=== PATIENT | male | born 1950 | race Caucasian/White ===

== ENCOUNTER 2018-09-29 10:08 | Outpatient (CLI) | payer MEDICARE ==
--- NOTE | 2018-09-29 12:47 | Diagnostic Imaging Report ---
Indication: Right shoulder pain Findings: 3 views of the right shoulder were obtained. No acute fractures, malalignment, erosions or periostitis are identified. Bones are osteopenic. Narrowing of the glenohumeral joint demonstrated. Soft tissues are unremarkable. Impression: Negative for acute injury. Osteoarthrosis
--- NOTE | 2018-09-29 12:48 | Diagnostic Imaging Report ---
Indication: Right hand pain Findings: 3 views of the right hand were obtained. There is an acute impacted fracture of the distal radius. Bones are osteopenic. Soft tissue swelling noted. No malalignment seen. IMPRESSION: Acute distal radius fracture
== END 2018-09-29 12:08 | disposition home or self-care (01) ==
LOC: RAD 10:08
DX: S52.501A Unspecified fracture of the lower end of right radius, initial encounter for closed fracture (principal); M25.511 Pain in right shoulder

== ENCOUNTER → 2020-03-15 | Outpatient (CLI) | payer MEDICARE ==
[~2020-03-15] MED LIST: CELEXA20 MG ORAL; CEPHALEXIN250 M2 ORAL; CRESTOR10 M2 ORAL; DESCOVY PO; LATANOPROST 0.7.5 ML OP; QUETIAPINE FUMA50 MG ORAL; SEROQUEL100 MG ORAL; VIRAMUNE200 MG PO
--- NOTE | 2020-03-16 15:29 | Diagnostic Imaging Report ---
Indication: Cough Technique: 2 views of the chest Comparison: 08/04/2019 Findings: The lung apices are cut off of the exam. Small focal patchy infiltrate is seen in the left lung base adjacent to the cardiac apex. No other infiltrates. No effusions. The heart size is normal. There is no significant interim change Impression: No acute process
== END | disposition home or self-care (01) ==
LOC: RAD 11:30
DX: Z01.818 Encounter for other preprocedural examination (principal); R05 Cough
CPT/HCPCS: 71046

== ENCOUNTER 2020-03-22 06:01 | Inpatient (IN) | payer MEDICAID, MEDICARE ==
[~2020-03-22] VITALS: Ht 185.4 cm; Wt 78.0 kg
[2020-03-22] VITALS (13 sets, daily range): BP systolic 98–169; BP diastolic 60–104
[~2020-03-22 06:01] MED LIST changes: -CELEXA20 MG ORAL; -CEPHALEXIN250 M2 ORAL; -CRESTOR10 M2 ORAL; -DESCOVY PO; -LATANOPROST 0.7.5 ML OP; -QUETIAPINE FUMA50 MG ORAL; -SEROQUEL100 MG ORAL; -VIRAMUNE200 MG PO; +ceFAZolin 1gm IVPB IVPB ONE; +celeBREX 200mg Cap **SURGERY PATIENTS ONLY ORAL ONE; +oxyCONTIN 10mg tab ORAL ONE
[2020-03-22] MEDS ORDERED: Lidocaine 1% MPF 10mg/ml 5ml ONE (06:54)
[2020-03-22] MEDS ORDERED: Ropivacaine 5mg/ml Vial 20ml INJ ONE (06:56)
[2020-03-22] MEDS ORDERED: HYDROmorphone 1mg/ml Carpuject SUBQ PRN (07:00)
[2020-03-22] MEDS ORDERED: Milk of Magnesia 30ml Ud ORAL PRN (07:00)
--- NOTE | 2020-03-22 07:00 | Pre-Procedure Note/Attestation ---
Pre-Procedure Note/Attestation Complete Prior to Procedure Planned Procedure: left Procedure Narrative: left total knee arthroplasty Indications for Procedure Pre-Operative Diagnosis: left knee arthritis Attestation I attest that I discussed the nature of the procedure; its benefits; risks and complications; and alternatives (and the risks and benefits of such alternatives ), prior to the procedure, with the patient (or the patient's legal human resources representative). I attest that, if there was a reasonable possibility of needing a blood transfusion, the patient (or the patient's legal human resources representative) was given the [facility] standardized written summary, pursuant to the Adelfo Gisselle Blood Safety Act ([place] Health and Safety Code # 1645, as amended). I attest that I re-evaluated the patient just prior to the surgery and that there has been no change in the patient's H&P, except as documented below: NONE Lemuel Jasmine MD Mar 22, 2020 07:00
[2020-03-22] MEDS ORDERED: Midazolam 2mg/2ml Inj ONE (07:01)
[2020-03-22] MEDS ORDERED: fentaNYL 100 mcg/2 mL IV ONE (07:01)
[2020-03-22] MEDS ORDERED: CELEXA20 MG ORAL (07:18)
[2020-03-22] MEDS ORDERED: CEPHALEXIN250 M2 ORAL (07:18)
[2020-03-22] MEDS ORDERED: QUETIAPINE FUMA50 MG ORAL (07:18)
[2020-03-22] MEDS ORDERED: VIRAMUNE200 MG PO (07:18)
[2020-03-22] MEDS ORDERED: DESCOVY PO (07:18)
[2020-03-22] MEDS ORDERED: LATANOPROST 0.7.5 ML OP (07:18)
[2020-03-22] MEDS ORDERED: LR 1000ml ONE (08:00)
[2020-03-22] MEDS ORDERED: NS Irrig 1000ml ONE (08:00)
[2020-03-22] MEDS ORDERED: Sterile Water Irrig 1000ml IRRIG ONE (08:00)
[2020-03-22] MEDS ORDERED: Tranexamic Acid 1,000 MG in NS 55 ML IV ONE (08:15)
[2020-03-22] MEDS ORDERED: NeoSporin Gu Irrig 1ml Amp IRRIG ONE ×2 (08:17→10:58)
[2020-03-22] MEDS ORDERED: Bacitracin 50000 Units Vial ONE ×2 (08:17→10:58)
--- NOTE | 2020-03-22 09:13 | Anethesia Preoperative Eval ---
Anesthesia Pre-op PMH/ROS General Date of Evaluation: Mar 22, 2020 Time of Evaluation: 07:50 Anesthesiologist: Max ASA Score: ASA 3 Mallampati Score Class I : Soft palate, uvula, fauces, pillars visible Class II: Soft palate, uvula, fauces visible Class III: Soft palate, base of uvula visible Class IV: Only hard plate visible Mallampati Classification: Class II Surgeon: Mitali Diagnosis: L knee DJD Surgical Procedure: L ee arthroplasty Anesthesia History: none Family History: no anesthesia problems Allergies: Coded Allergies: No Known Allergies (Verified , 03/22/20) Medications: see eMAR Patient NPO?: Yes Past Medical History Cardiovascular: Reports: HTN; Denies: CAD, HI, valve dz, arrhythmia, other Pulmonary: Denies: asthma, COPD, BEAN, other Gastrointestinal/Genitourinary: Reports: GERD, CRI - Elevated Cr.; Denies: ESRD, other Neurologic/Psychiatric: Reports: depression/anxiety; Denies: dementia, CVA, TIA, other Endocrine: Denies: DM, hypothyroidism, steroids, other HEENT: Reports: cataract (L) - Bilateral s/p Sx, glaucoma, other - retial detouchment; Denies: cataract (R), AGDAAGUX (L), AGDAAGUX (R) Hematology/Immune: Reports: other - HIV + sable on ativirals; Denies: anemia, DVT, bleeding disorder Musculoskeletal/Integumentary: Reports: OA; Denies: RA, DJD, DDD, edema, other PMH Narrative: as above PSxH Narrative: Posterior cervical spine fusion, bilateral cataracts, retinal Sx, hemicolectomy for CA Anesthesia Pre-op Phys. Exam Physician Exam Last Vital Signs Date Time Temp Pulse Resp B/P (MAP) Pulse Ox O2 Delivery O2 Flow Rate FiO2 03/22/20 07:05 97.7 61 18 139/97 (111) 96 03/22/20 06:43 Room Air Constitutional: NAD Neurologic: CN 2-12 intact Cardiovascular: RRR, no M/R/G Respiratory: CTA Gastrointestinal: S/NT/ND Airway Exam Mallampati Score: Class II MO: limited Neck: stiff ROM: limited Teeth: missing Dentures: no upper, no lower Anesthesia Pre-op A/P Labs see chart Studies Pre-op Studies: EKG - NSR Risk Assessment & Plan Assessment: ASA 3 Plan: SAB vs GA with femoral nerve block for postop pain control Status Change Before Surgery: No Pre-Antibiotics Drug: Ancef 2gr Given Within 1 Hr of Incision: Yes Time Given: 09:10 Samm Wyman MD Mar 22, 2020 09:13
[2020-03-22] MEDS ORDERED: Acetaminophen (Non formulary) 100 ML IV ONE (09:15)
[2020-03-22] MEDS ORDERED: LR 1000ml 1,000 ML IVLG SCH (09:20)
[2020-03-22] MEDS ORDERED: Ketorolac 30mg Inj IV PRN (09:30)
[2020-03-22] MEDS ORDERED: fentaNYL 100 mcg/2 mL IV PRN (09:30)
[2020-03-22] MEDS ORDERED: Morphine Sulfate 10mg/ml Inj ONE (09:31)
[2020-03-22] MEDS ORDERED: Sodium Chloride 10ml vial INJ ONE (09:32)
--- NOTE | 2020-03-22 11:29 | Brief Operative Note ---
Immediate Post Operative Note Operative Note Chief Complaint: left knee pain Pre-op Diagnosis: left knee arthritis Procedure: left TKA Post-op Diagnosis: same as pre-op Findings: consistent w/pre-op dx studies Surgeon: md cindy Infertility Nurse: jose bailey Anesthesiologist: md kennedy Anesthesia: general Specimen: yes Complications: none Condition: stable Fluids: ns Estimated Blood Loss: minimal Drains: none Implant(s) used?: Yes - Lemuel Larson MD Mar 22, 2020 11:29
--- NOTE | 2020-03-22 11:46 | Immediate Post-Op Evaluation ---
Immediate Post-Op Evalulation Immediate Post-Op Evalulation Procedure: L total knee arthroplasty Date of Evaluation: Mar 22, 2020 Time of Evaluation: 11:45 IV Fluids: 1800 Blood Products: none Estimated Blood Loss: 250 Urinary Output: 100 Blood Pressure Systolic: 108 Blood Pressure Diastolic: 81 Pulse Rate: 64 Respiratory Rate: 18 O2 Sat by Pulse Oximetry: 99 Temperature (Fahrenheit): 97.5 Pain Score (1-10): 1 Nausea: No Vomiting: No Complications none Patient Status: awake, patent, none Hydration Status: adequate Samm Wyman MD Mar 22, 2020 11:46
--- NOTE | 2020-03-22 11:57 | Orthopedic Progress Note ---
Orthopedic - Progress Note Subjective Additional Comments patient was seen in recovery, awake, alert oriented. Knee clean and dry. dressing intact. Good capillary refill distally. Left foot warm. No evidence of neural or vascular injury. Patient has some decrease sensation and decrease strength in BLE due to spinal. Will monitor progress. No complications noted. Objective Last 24 Hour Vital Signs Date Time Temp Pulse Resp B/P (MAP) Pulse Ox O2 Delivery O2 Flow Rate FiO2 03/22/20 11:46 64 18 99 03/22/20 07:05 97.7 61 18 139/97 (111) 96 03/22/20 06:43 Room Air Intake and Output 03/21/20 03/22/20 19:00 07:00 # Voids 1 Assessment Procedure Performed left TKA Lemuel Jasmine MD Mar 22, 2020 11:57
--- NOTE | 2020-03-22 14:01 | Diagnostic Imaging Report ---
Indication: Postoperative total knee arthroplasty for pain Technique: 2 views of the left knee Comparison: none Findings: There is a total knee arthroplasty prosthesis that appears well-positioned. There is retained air from the surgical exposure within the soft tissues. Impression: Postoperative left knee. No unusual features
[2020-03-22] MEDS ORDERED: SEROQUEL100 MG ORAL (15:13)
[2020-03-22] MEDS ORDERED: CRESTOR10 M2 ORAL (15:16)
[2020-03-22] MEDS: ceFAZolin sod 1 GM in D5W 55 ML IV SCH (16:45)
[2020-03-22] MEDS: D5 1/2NS w/KCl 20mEq 1,000 ML IV SCH (16:45)
--- NOTE | 2020-03-22 17:15 | Operative Note - Dictated ---
DATE OF OPERATION: 03/22/2020 PREOPERATIVE DIAGNOSIS: Left knee end-stage arthritis. POSTOPERATIVE DIAGNOSIS: Left knee end-stage arthritis. PROCEDURE: Left total knee arthroplasty using Nicole Triathlon System, size 7 femur, size 7 tibia, 36 mm all poly patella, and 9 mm tibial insert, all cemented. SURGEON: Lemuel Jasmine M.D. SUPERVISOR PAINTING: Linda Little PA-C. ANESTHESIOLOGIST: Samm Wyman M.D. ANESTHESIA: LMA anesthesia combined with adductor block. EBL: 150 mL COMPLICATIONS: None. BRIEF HISTORY: Patient is a pleasant 69-year-old gentleman who has had severe arthritis with a valgus deformity of the left knee. After full discussion of risks and benefits of the surgery and complications associated with it and after he failed nonoperative treatment, he opted for surgical treatment of the left knee in the form of total knee arthroplasty. Risks of infection, bleeding, neurovascular complication, possibility of continued pain, possibility of DVT, PEs, loosening, infection requiring revision and resection arthroplasty, as well as need for revision arthroplasty down the line may occur and all these risks were discussed with him. OPERATIVE PROCEDURE: The patient was brought to the operating table and placed supine. All pressure points were well padded. Adductor block was induced and general LMA anesthesia was induced. The left knee was prepped and draped in usual sterile fashion. The left leg was exsanguinated and tourniquet was inflated to 275 mmHg. Prior to tourniquet, Ancef and tranexamic acid were given. The standard anterior approach to the left knee was undertaken. Incision was taken through subcutaneous tissue and medial parapatellar arthrotomy was performed. There was extensive synovitis and inflammation in the knee and there was 300 mL of synovial fluid that was aspirated from the knee. The patella was then everted. Fat pad was resected. Medial release of deep fibers of the MCL was done. The knee was then bent and ACL, PCL menisci were removed. At this point in time, care was given to the distal femur cut. A 5-degree valgus distal femur cut was performed without any complication. At this point, care was given to the measurements and measurements of the femur were made and size 7 femur appeared to be the right size. Care was given to make sure that 3 degrees of external rotation was created, especially in view of the lateral wear. Therefore, a transepicondylar axis as well as the center of the trochlear groove was used as reference to create 3 degrees of external rotation. Once this was completed, the anterior, posterior, and chamfer cuts were performed without any complications. Trial femur was applied and slightly lateralized and PEG holes were drilled. At this point, care was given to the tibia. Using an extramedullary guide, the anatomical axis of the tibia was recreated using anterior tibial crest. The slope was recreated at this point, 2 mm was taken off the most involved side. This provided excellent cut of the tibia. Once this was completed, the flexion-extension gap was checked. The flexion-extension gap was excellent. It should be noted that appropriate retractors were placed medial and lateral and posteriorly to protect the vital structures during the tibial cut. Once this was completed, the size 7 tibia appeared to be of the right size. This was drilled and punched. At this point, care was given to the patella. The patella measured 25 mm. A freehand cut was performed and 14 mm patella was remaining. Size 36 patella appeared to be the right size and PEG holes were drilled. The trial patella was then applied as well as trial femur and trial tibia and 9 mm poly was inserted. Range of motion was checked. There was excellent range of motion from 0 to 100 degrees of range of motion. There was excellent stability at 0, 30 degrees, 45 degrees, and 90 degrees of flexion. The patellofemoral tracking was excellent. At this point, all trial components were removed and the knee was thoroughly irrigated using copious amount of fluid. Cement was mixed and the tibial component, femoral component, and patellar components were all cemented without any complication. Once this was completed, the size 9 mm poly was trialed and appeared to be excellent with range of motion and stability as described. Therefore, 9 mm actual poly was locked in without any complication. Patellofemoral tracking and range of motion stability were checked with the final components and appeared to be perfect. Wounds were thoroughly irrigated using copious amount of fluid. The tourniquet was deflated. There was some bleeding that was stopped. There was some bleeding from the lateral side and with the knee flexed, the bleeding could not be seen. However, with the knee extended, there was a slight amount of filling of the lateral gutter. Compression was applied and the bleeding appeared to have gone to minimal, although there was some bleeding present. However, due to the fact that on multiple attempts in trying to identify the source of bleeding, it could not be done on the lateral side or posteriorly, and the minimal size of bleeding, and after adequate compression of the bleeder, the joint was closed. The capsule was closed using #1 Vicryl suture. Subcutaneous tissue was closed using 2-0 Vicryl suture. Skin was closed with 3-0 Monocryl suture. Sterile dressing was applied and Dermabond was applied. Neurovascular checks will be done routinely within the next hour and a half to assure adequate perfusion of the left leg. It should be noted that there was absolutely no bleeding from the posterior popliteal artery area and the bleeding appeared to be from the medial gutter. All lap counts and instrument counts were correct. Lemuel Jasmine M.D. DR: RYLAN JOB#: [id number] CC:
[2020-03-22] MEDS: Docusate 100mg cap ORAL SCH (17:21)
[2020-03-22] MEDS: Latanoprost 0.005% Opth 2.5ml Soln BOTH EYES SCH (21:36)
[2020-03-22] MEDS: Atorvastatin 20mg tab ORAL SCH ×2 (21:36→21:58)
[2020-03-22 22:47] LABS: APPEARANCE,URINE CLEAR; BILIRUBIN, URINE NEGATIVE (NEGATIVE); COLOR,URINE PALE YELLOW; GLUCOSE, URINE (UA) 3+ (NEGATIVE); KETONES,URINE 1+ (NEGATIVE); LEUKOCYTE ESTERASE ,URINE 1+ (NEGATIVE); NITRITE,URINE NEGATIVE (NEGATIVE); PH,URINE 5 (4.5-8.0); PROTEIN,URINE 2+ (NEGATIVE); UROBILINOGEN,URINE NORMAL MG/DL (0.0-1.0)
[2020-03-23] VITALS: BP 165/88
[2020-03-23] MEDS: ceFAZolin sod 1 GM in D5W 55 ML IV SCH (00:30)
[2020-03-23 04:00] VITALS: BP 160/90
[2020-03-23] MEDS: D5 1/2NS w/KCl 20mEq 1,000 ML IV SCH ×2 (04:20→17:40)
[2020-03-23] MEDS: HYDROcodone/Acetamin 7.5/325 tab ORAL PRN (05:07)
[2020-03-23 06:22] LABS: BASOPHILS % (AUTO) 0.6 % (0.0-2.0); EOSINOPHILS % (AUTO) 0.2 % (0.0-3.0); HEMATOCRIT 39.2 % (42.0-52.0); HEMOGLOBIN 13.5 G/DL (14.2-18.0); LYMPHOCYTES % (AUTO) 14.5 % (20.0-45.0); MEAN CORPUSCULAR VOLUME 100 FL (80-99); MONOCYTES % (AUTO) 8.9 % (1.0-10.0); NEUTROPHILS % (AUTO) 75.8 % (45.0-75.0); PLATELET COUNT 190 K/UL (150-450); RED BLOOD COUNT 3.93 M/UL (4.70-6.10); RED CELL DISTRIBUTION WIDTH 11.2 % (11.6-14.8); WHITE BLOOD COUNT 9.4 K/UL (4.8-10.8)
[2020-03-23 06:38] LABS: ALANINE AMINOTRANSFERASE 23 U/L (12-78); ALBUMIN 3.2 G/DL (3.4-5.0); ALBUMIN/GLOBULIN RATIO 1.1 (1.0-2.7); ALKALINE PHOSPHATASE 81 U/L (46-116); ANION GAP 9 mmol/L (5-15); ASPARTATE AMINO TRANSFERASE 21 U/L (15-37); BILIRUBIN,TOTAL 0.5 MG/DL (0.2-1.0); BLOOD UREA NITROGEN 16 mg/dL (7-18); CALCIUM 7.7 MG/DL (8.5-10.1); CARBON DIOXIDE 26 MMOL/L (21-32); CHLORIDE 105 MMOL/L (98-107); CREATININE 1.4 MG/DL (0.55-1.30); POTASSIUM 4.2 MMOL/L (3.5-5.1); SODIUM 140 MMOL/L (136-145)
[2020-03-23 08:00] VITALS: BP 142/83
--- NOTE | 2020-03-23 08:12 | 48 Hour Post Anesthesia Eval ---
Post Anesthesia Evaluation Procedure: L total knee arthroplasty Date of Evaluation: Mar 23, 2020 Time of Evaluation: 08:11 Blood Pressure Systolic: 160 0: 70 Pulse Rate: 76 Respiratory Rate: 16 Temperature (Fahrenheit): 97.5 O2 Sat by Pulse Oximetry: 96 Airway: patent Nausea: No Vomiting: No Pain Intensity: 3 Hydration Status: adequate Cardiopulmonary Status: Stable Mental Status/LOC: patient returned to baseline Follow-up Care/Observations: 0 Post-Anesthesia Complications: 0 Follow-up care needed: N/A Ag Petit MD Mar 23, 2020 08:12
--- NOTE | 2020-03-23 08:19 | Orthopedic Progress Note ---
Orthopedic - Progress Note Subjective Symptoms: improved Objective Laboratory Tests Test 03/22/20 22:20 03/23/20 05:15 Urine Color Pale yellow Urine Appearance Clear Urine pH 5 (4.5-8.0) Urine Specific [place] 1.020 (1.005-1.035) Urine Protein 2+ (NEGATIVE) H Urine Glucose (UA) 3+ (NEGATIVE) H Urine Ketones 1+ (NEGATIVE) H Urine Blood 2+ (NEGATIVE) H Urine Nitrite Negative (NEGATIVE) Urine Bilirubin Negative (NEGATIVE) Urine Urobilinogen Normal MG/DL (0.0-1.0) Urine Leukocyte Esterase 1+ (NEGATIVE) H Urine RBC 5-10 /HPF (0 - 0) H Urine WBC 5-10 /HPF (0 - 0) H Urine Squamous Epithelial Cells None /LPF (NONE/OCC) Urine Bacteria Occasional /HPF (NONE) White Blood Count 9.4 K/UL (4.8-10.8) Red Blood Count 3.93 M/UL (4.70-6.10) L Hemoglobin 13.5 G/DL (14.2-18.0) L Hematocrit 39.2 % (42.0-52.0) L Mean Corpuscular Volume 100 FL (80-99) H Mean Corpuscular Hemoglobin 34.4 PG (27.0-31.0) H Mean Corpuscular Hemoglobin Concent 34.5 G/DL (32.0-36.0) Red Cell Distribution Width 11.2 % (11.6-14.8) L Platelet Count 190 K/UL (150-450) Mean Platelet Volume 5.4 FL (6.5-10.1) L Neutrophils (%) (Auto) 75.8 % (45.0-75.0) H Lymphocytes (%) (Auto) 14.5 % (20.0-45.0) L Monocytes (%) (Auto) 8.9 % (1.0-10.0) Eosinophils (%) (Auto) 0.2 % (0.0-3.0) Basophils (%) (Auto) 0.6 % (0.0-2.0) Sodium Level 140 MMOL/L (136-145) Potassium Level 4.2 MMOL/L (3.5-5.1) Chloride Level 105 MMOL/L (98-107) Carbon Dioxide Level 26 MMOL/L (21-32) Anion Gap 9 mmol/L (5-15) Blood Urea Nitrogen 16 mg/dL (7-18) Creatinine 1.4 MG/DL (0.55-1.30) H Estimat Glomerular Filtration Rate 50.2 mL/min (>60) Glucose Level 147 MG/DL (74-106) H Calcium Level 7.7 MG/DL (8.5-10.1) L Total Bilirubin 0.5 MG/DL (0.2-1.0) Aspartate Amino Transf (AST/SGOT) 21 U/L (15-37) Alanine Aminotransferase (ALT/SGPT) 23 U/L (12-78) Alkaline Phosphatase 81 U/L (46-116) Total Protein 6.0 G/DL (6.4-8.2) L Albumin 3.2 G/DL (3.4-5.0) L Globulin 2.8 g/dL Albumin/Globulin Ratio 1.1 (1.0-2.7) Last 24 Hour Vital Signs Date Time Temp Pulse Resp B/P (MAP) Pulse Ox O2 Delivery O2 Flow Rate FiO2 03/23/20 08:12 76 16 96 03/23/20 04:00 97.5 76 16 160/90 (113) 96 03/23/20 00:00 98.5 82 17 165/88 (113) 96 03/22/20 22:01 177/100 03/22/20 21:00 Room Air 03/22/20 20:00 97.9 60 16 169/104 (125) 95 03/22/20 17:17 98.4 03/22/20 15:00 98.4 62 18 105/66 (79) 95 03/22/20 14:00 98.5 63 18 106/60 (75) 96 03/22/20 13:15 98.2 60 18 105/68 (80) 96 03/22/20 13:02 97.7 63 18 103/72 97 Nasal Cannula 3 03/22/20 12:45 61 15 101/73 99 Nasal Cannula 3 03/22/20 12:30 60 15 102/73 98 Nasal Cannula 3 03/22/20 12:15 61 18 98/72 96 Nasal Cannula 3 03/22/20 12:00 59 19 101/72 98 Nasal Cannula 3 03/22/20 11:50 58 17 100/74 99 Simple Mask 6 03/22/20 11:46 64 18 99 03/22/20 11:40 60 15 118/87 97 Simple Mask 6 03/22/20 11:32 97.2 63 18 118/87 99 Simple Mask 6 Intake and Output 03/22/20 03/23/20 19:00 07:00 Intake Total 200 ml Output Total 100 ml Balance 100 ml Intake IV Total 200 ml Output Urine Total 100 ml Laboratory Tests Test 03/22/20 22:20 03/23/20 05:15 Urine Color Pale yellow Urine Appearance Clear Urine pH 5 (4.5-8.0) Urine Specific [place] 1.020 (1.005-1.035) Urine Protein 2+ (NEGATIVE) H Urine Glucose (UA) 3+ (NEGATIVE) H Urine Ketones 1+ (NEGATIVE) H Urine Blood 2+ (NEGATIVE) H Urine Nitrite Negative (NEGATIVE) Urine Bilirubin Negative (NEGATIVE) Urine Urobilinogen Normal MG/DL (0.0-1.0) Urine Leukocyte Esterase 1+ (NEGATIVE) H Urine RBC 5-10 /HPF (0 - 0) H Urine WBC 5-10 /HPF (0 - 0) H Urine Squamous Epithelial Cells None /LPF (NONE/OCC) Urine Bacteria Occasional /HPF (NONE) White Blood Count 9.4 K/UL (4.8-10.8) Red Blood Count 3.93 M/UL (4.70-6.10) L Hemoglobin 13.5 G/DL (14.2-18.0) L Hematocrit 39.2 % (42.0-52.0) L Mean Corpuscular Volume 100 FL (80-99) H Mean Corpuscular Hemoglobin 34.4 PG (27.0-31.0) H Mean Corpuscular Hemoglobin Concent 34.5 G/DL (32.0-36.0) Red Cell Distribution Width 11.2 % (11.6-14.8) L Platelet Count 190 K/UL (150-450) Mean Platelet Volume 5.4 FL (6.5-10.1) L Neutrophils (%) (Auto) 75.8 % (45.0-75.0) H Lymphocytes (%) (Auto) 14.5 % (20.0-45.0) L Monocytes (%) (Auto) 8.9 % (1.0-10.0) Eosinophils (%) (Auto) 0.2 % (0.0-3.0) Basophils (%) (Auto) 0.6 % (0.0-2.0) Sodium Level 140 MMOL/L (136-145) Potassium Level 4.2 MMOL/L (3.5-5.1) Chloride Level 105 MMOL/L (98-107) Carbon Dioxide Level 26 MMOL/L (21-32) Anion Gap 9 mmol/L (5-15) Blood Urea Nitrogen 16 mg/dL (7-18) Creatinine 1.4 MG/DL (0.55-1.30) H Estimat Glomerular Filtration Rate 50.2 mL/min (>60) Glucose Level 147 MG/DL (74-106) H Calcium Level 7.7 MG/DL (8.5-10.1) L Total Bilirubin 0.5 MG/DL (0.2-1.0) Aspartate Amino Transf (AST/SGOT) 21 U/L (15-37) Alanine Aminotransferase (ALT/SGPT) 23 U/L (12-78) Alkaline Phosphatase 81 U/L (46-116) Total Protein 6.0 G/DL (6.4-8.2) L Albumin 3.2 G/DL (3.4-5.0) L Globulin 2.8 g/dL Albumin/Globulin Ratio 1.1 (1.0-2.7) Wound: clean, dry, intact Drains: none Neuro Status: normal Vascular Status: normal Additional Comments xray reviewed and excellent Assessment Post-op Diagnosis POD 1 Procedure Performed Left TKA Plan Plan: PT, discharge plan - Likely to rehab tomorrow Linda Little Mar 23, 2020 08:19
[2020-03-23] MEDS ORDERED: Nevirapine 200mg Tab ORAL SCH (09:00)
[2020-03-23] MEDS ORDERED: NEVIRAPINE 200 MG ORAL SCH (09:00)
[2020-03-23] MEDS: celeBREX 200mg Cap **SURGERY PATIENTS ONLY ORAL SCH (09:13)
[2020-03-23] MEDS: Docusate 100mg cap ORAL SCH ×3 (09:13→17:50)
[2020-03-23] MEDS: Citalopram Hydrobromide 10mg Tab ORAL SCH (09:14)
[2020-03-23] MEDS: DESCOVY ORAL SCH (09:14)
[2020-03-23] MEDS: Cephalexin 250mg Cap ORAL SCH ×2 (09:58→20:41)
--- NOTE | 2020-03-23 11:15 | History and Physical Report ---
DATE OF ADMISSION: 03/22/2020 INTERNAL MEDICINE CONSULTATION HISTORY OF PRESENT ILLNESS: The patient is a very pleasant 69-year-old gentleman with history of HIV positivity, who underwent a left knee replacement by Dr. Jasmine. Postoperatively, he is doing fine. Denies any fevers or chills. No chest pain. No shortness of breath. No cough. No headaches. No sore throat. No urinary symptoms. PAST MEDICAL HISTORY: Includes a history of spinal abscess which was drained back in 2005 and after that he received a cervical fusion. He also has had two retinal detachment surgeries as well as both eyes cataract surgeries. He also has a history of colon cancer, status post colectomy. Denies any history of high blood pressure, diabetes, or cholesterol problems. History of osteoarthritis. No history of opportunistic infections. MEDICATIONS: Please see his reconciled medication list. ALLERGIES: As per chart. SOCIAL HISTORY: He does not smoke cigarettes. Does not drink any alcohol other than socially. He does smoke marijuana. FAMILY HISTORY: Includes a history of obesity. No history of heart disease, or strokes. REVIEW OF SYSTEMS: Twelve point review of systems reviewed, negative except for above. History of HIV positivity. No opportunistic infections. PHYSICAL EXAMINATION: GENERAL: He is well developed and well nourished, currently in no apparent distress. VITAL SIGNS: Stable. He is afebrile. HEENT: Head is normocephalic and atraumatic. Pupils are reactive to light. Extraocular movements intact. Eyes anicteric. NECK: Supple. No JVP. No bruits. LUNGS: Clear to auscultation bilaterally. HEART: Regular rate and rhythm. ABDOMEN: Soft. Positive bowel sounds. Nondistended, nontender. EXTREMITIES: No clubbing, cyanosis, or edema. Left knee is wrapped. Neurovascularly intact. PSYCHIATRIC: Normal mood and affect. LABORATORY DATA: Labs are pending. ASSESSMENT AND PLAN: The patient is a pleasant 69-year-old gentleman with history of human immunodeficiency virus positive, status post left knee replacement. Postoperatively, he is doing fine. Pain is relatively controlled. His blood pressure was high last night. He was placed on clonidine p.r.n. We will monitor the patient. We will continue his HIV medications. The patient should be on DVT and ulcer prophylaxes. Wound care is per Dr. Jasmine and physical therapy per Dr. Jasmine. Quinten Celaya M.D. DR: TIANA JOB#: [id number] CC:
[2020-03-23 12:00] VITALS: BP 124/75
[2020-03-23 16:00] VITALS: BP 132/79
[2020-03-23 20:00] VITALS: BP 175/105
[2020-03-23] MEDS: NEVIRAPINE 200 MG ORAL SCH (20:01)
[2020-03-23] MEDS: Atorvastatin 20mg tab ORAL SCH (20:41)
[2020-03-23] MEDS: Latanoprost 0.005% Opth 2.5ml Soln BOTH EYES SCH (21:00)
[2020-03-24] VITALS: BP 107/82
[2020-03-24 04:00] VITALS: BP 109/72
[2020-03-24] MEDS: HYDROcodone/Acetamin 7.5/325 tab ORAL PRN (04:53)
[2020-03-24 06:31] LABS: BASOPHILS % (AUTO) 0.7 % (0.0-2.0); EOSINOPHILS % (AUTO) 0.3 % (0.0-3.0); HEMATOCRIT 31.6 % (42.0-52.0); HEMOGLOBIN 10.9 G/DL (14.2-18.0); MEAN CORPUSCULAR VOLUME 99 FL (80-99); MONOCYTES % (AUTO) 10.1 % (1.0-10.0); NEUTROPHILS % (AUTO) 74.9 % (45.0-75.0); PLATELET COUNT 163 K/UL (150-450); RED CELL DISTRIBUTION WIDTH 10.9 % (11.6-14.8)
[2020-03-24] MEDS: D5 1/2NS w/KCl 20mEq 1,000 ML IV SCH (07:00)
--- NOTE | 2020-03-24 07:32 | Orthopedic Progress Note ---
Orthopedic - Progress Note Subjective Symptoms: c/o post-op knee pain Objective Last 24 Hour Vital Signs Date Time Temp Pulse Resp B/P (MAP) Pulse Ox O2 Delivery O2 Flow Rate FiO2 03/24/20 04:00 98.3 84 17 109/72 (84) 96 03/24/20 00:00 98.4 86 16 107/82 (90) 99 03/23/20 21:02 175/105 03/23/20 21:00 Room Air 03/23/20 20:00 98.5 82 17 175/105 (128) 97 03/23/20 16:00 99.0 78 19 132/79 (96) 99 03/23/20 12:00 98.6 85 19 124/75 (91) 98 03/23/20 09:00 Room Air 03/23/20 08:12 76 16 96 03/23/20 08:00 98.5 79 20 142/83 (102) 98 Intake and Output 03/23/20 03/24/20 19:00 07:00 Intake Total 600 ml Balance 600 ml Intake IV Total 600 ml Laboratory Tests Test 03/24/20 05:35 White Blood Count 9.0 K/UL (4.8-10.8) Red Blood Count 3.20 M/UL (4.70-6.10) L Hemoglobin 10.9 G/DL (14.2-18.0) L Hematocrit 31.6 % (42.0-52.0) L Mean Corpuscular Volume 99 FL (80-99) Mean Corpuscular Hemoglobin 34.1 PG (27.0-31.0) H Mean Corpuscular Hemoglobin Concent 34.6 G/DL (32.0-36.0) Red Cell Distribution Width 10.9 % (11.6-14.8) L Platelet Count 163 K/UL (150-450) Mean Platelet Volume 6.0 FL (6.5-10.1) L Neutrophils (%) (Auto) 74.9 % (45.0-75.0) Lymphocytes (%) (Auto) 14.0 % (20.0-45.0) L Monocytes (%) (Auto) 10.1 % (1.0-10.0) H Eosinophils (%) (Auto) 0.3 % (0.0-3.0) Basophils (%) (Auto) 0.7 % (0.0-2.0) Wound: clean, dry Drains: none Neuro Status: normal Assessment Procedure Performed left TKA Plan Plan: PT, pain management, discharge plan Additional Comments Dressing changes Discharge to rehab today Review HIV meds with the patient to assure he is getting all his home meds Lemuel Jasmine MD Mar 24, 2020 07:32
[2020-03-24 08:00] VITALS: BP 141/83
[2020-03-24] MEDS: NEVIRAPINE 200 MG ORAL SCH (09:23)
[2020-03-24] MEDS: DESCOVY ORAL SCH (09:23)
[2020-03-24] MEDS: Docusate 100mg cap ORAL SCH ×2 (09:25→13:46)
[2020-03-24] MEDS: Citalopram Hydrobromide 10mg Tab ORAL SCH (09:25)
[2020-03-24] MEDS: celeBREX 200mg Cap **SURGERY PATIENTS ONLY ORAL SCH (09:25)
[2020-03-24] MEDS: Cephalexin 250mg Cap ORAL SCH (09:26)
[2020-03-24 12:00] VITALS: BP 146/79
--- NOTE | 2020-03-24 20:58 | General Progress Note ---
Assessment/Plan Assessment/Plan: sp knee replacement hiv pos post op care on hiv meds dvt and ulcer prophylaxis being trasnfered to [facility] today Subjective Allergies: Coded Allergies: No Known Allergies (Verified , 03/22/20) Subjective doing well pain contolled no chest painor sob Objective Last 24 Hour Vital Signs Date Time Temp Pulse Resp B/P (MAP) Pulse Ox O2 Delivery O2 Flow Rate FiO2 03/24/20 12:00 98.6 101 20 146/79 (101) 97 03/24/20 09:00 Room Air 03/24/20 08:00 98.5 87 20 141/83 (102) 96 03/24/20 04:00 98.3 84 17 109/72 (84) 96 03/24/20 00:00 98.4 86 16 107/82 (90) 99 03/23/20 21:02 175/105 03/23/20 21:00 Room Air Intake and Output 03/23/20 03/24/20 19:00 07:00 Intake Total 600 ml Balance 600 ml IV Total 600 ml Laboratory Tests 03/24/20 05:35: White Blood Count 9.0, Red Blood Count 3.20L, Hemoglobin 10.9L, Hematocrit 31.6L , Mean Corpuscular Volume 99, Mean Corpuscular Hemoglobin 34.1H, Mean Corpuscular Hemoglobin Concent 34.6, Red Cell Distribution Width 10.9L, Platelet Count 163, Mean Platelet Volume 6.0L, Neutrophils (%) (Auto) 74.9, Lymphocytes (%) (Auto) 14.0L, Monocytes (%) (Auto) 10.1H, Eosinophils (%) (Auto ) 0.3, Basophils (%) (Auto) 0.7 Height (Feet): 6 Height (Inches): 1.00 Weight (Pounds): 172 General Appearance: WD/WN Neck: supple Cardiovascular: normal rate Respiratory/Chest: lungs clear Abdomen: soft Neurologic: alert, oriented x 3 Objective knee wrapped no sign of infection neurovascular intact Quinten Celaya MD Mar 24, 2020 20:58
--- NOTE | 2020-03-28 11:08 | Discharge Summary ---
Discharge Summary Hospital Course Date of Admission Mar 22, 2020 at 06:01 Date of Discharge Mar 24, 2020 at 15:50 Admitting Diagnosis Left knee end-stage arthritis Reason for Hospitalization: elective surgery IESHA Chen is a 69 year old male who was admitted on Mar 22, 2020 at 06:01 for left knee end-stage arthritis Patient was admitted for elective surgery Consultations Dr Celaya IM Procedures s/p 03/22/[address] Jasmine Left total knee arthroplasty Hospital Course status post surgery course of recovery uneventful initially IV fluids s/p perioperative antibiotic neurovascular status closely monitored, remained stable incision clean, dry and intact pain management was addressed pain was controlled remained hemodynamically stable ambulated with PT fall precautions maintained; safe for ambulation DVT prophylaxis provided use of incentive spirometry was encouraged while in the bed tolerated diet , IV fluids discontinued home medications continued GI prophylaxis provided antiemetics were on board as needed voided freely bowel regimen instituted patient was stable for discharge to [facility]acute for further rehabilitation discharge instructions provided FINAL DIAGNOSIS Left knee end-stage arthritis Status post left total knee arthroplasty HIV disease Discharge Medications Continued Medications: Cephalexin* (Keflex*) 250 Mg Tablet 250 MG ORAL TWICE A DAY for PRESCRIBED, TAB Citalopram Hydrobromide* (Celexa*) 20 Mg Tablet 20 MG ORAL DAILY for PRESCRIBED, TAB (This prescription has been renewed) [Descovy] () 200 MG PO DAILY (This prescription has been renewed) Latanoprost/Pf (Latanoprost 0.005% Eye Drop) 7.5 Ml Drops 7.5 ML OP HS for PRESCRIBED, ML Nevirapine (Viramune) 200 Mg Tablet 200 MG PO BID for PRECRIBED, TAB (This prescription has been renewed) Quetiapine Fumarate* (Seroquel*) 100 Mg Tablet 100 MG ORAL HS for depression, #2 TAB Rosuvastatin Calcium* (Crestor*) 10 Mg Tablet 10 MG ORAL DAILY for hyperlipidemia, TAB (This prescription has been renewed) Discharge Discharge Vital Signs Last Vital Signs Date Time Temp Pulse Resp B/P (MAP) Pulse Ox O2 Delivery O2 Flow Rate FiO2 03/24/20 12:00 98.6 101 20 146/79 (101) 97 03/24/20 09:00 Room Air 03/22/20 13:02 3 Discharge Disposition Patient was discharged to [facility](62) Discharge Instructions Discharge Instructions Special Instructions I have been assigned to complete a D/C Summary on this account. I was not involved in the patient management Cathy Xiong NP Mar 28, 2020 11:08
== END 2020-03-24 15:50 | disposition short-term general hospital (02) | DRG 470 ==
LOC: SDSOVERFLO 06:01 → 3E 13:18
PROC: 0SRD0J9 Replacement of Left Knee Joint with Synthetic Substitute, Cemented, Open Approach (ICD-10-PCS; principal; 2020-03-22 07:30)
DX: M17.12 Unilateral primary osteoarthritis, left knee (principal); Z85.038 Personal history of other malignant neoplasm of large intestine
CPT/HCPCS: 36415; 80053; 81001; 85025; 86850; 86900; 86901; 87081; 94003; 94150; J2250; J2405; J2795

== ENCOUNTER → 2020-06-22 | Outpatient (CLI) | payer MEDICARE, MEDICAID ==
[~2020-06-22] MED LIST changes: +CELEXA20 MG ORAL; +CEPHALEXIN250 M2 ORAL; +CRESTOR10 M2 ORAL; +DESCOVY PO; +LATANOPROST 0.7.5 ML OP; +QUETIAPINE FUMA50 MG ORAL; +SEROQUEL100 MG ORAL; +VIRAMUNE200 MG PO; -ceFAZolin 1gm IVPB IVPB ONE; -celeBREX 200mg Cap **SURGERY PATIENTS ONLY ORAL ONE; -oxyCONTIN 10mg tab ORAL ONE
--- NOTE | 2020-06-22 17:18 | Diagnostic Imaging Report ---
Indication: History of knee pain history of popliteal DVT Technique: Grayscale and duplex images of the left lower extremity veins Comparison: 04/20/2020 Findings: Previous exam demonstrated thrombus within the popliteal vein, nearly occlusive and expanding the lumen. On the current exam, small amount of residual chronic appearing thrombus is noted, resulting in incomplete compressibility. The remaining venous segments are patent, demonstrating normal Doppler flow and compressibility. No new clot is demonstrated. Again noted is a partially thrombosed popliteal artery aneurysm, also previously demonstrated. Impression: Interim resolution of most of the previously demonstrated left popliteal deep venous thrombosis, with some residual chronic nonocclusive mural thrombus present. 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
== END | disposition home or self-care (01) ==
LOC: VAS 10:15
DX: I72.4 Aneurysm of artery of lower extremity (principal); I82.432 Acute embolism and thrombosis of left popliteal vein
CPT/HCPCS: 93971